=== PATIENT | female | born 1980 ===

== ENCOUNTER 2024-11-16 11:31 | Outpatient (CLI) | payer BC, SELFPAY ==
--- NOTE | ~2024-11-16 | US_ITS ---
EXAMINATION: US thyroid DATE: 11/16/2024 12:15 INDICATION: Nontoxic goiter TECHNIQUE: Multiple ultrasound images of the thyroid were obtained. COMPARISON: None. FINDINGS: The right thyroid lobe measures 1.7 x 4.5 x 1.3 cm. The left thyroid lobe measures 1.9 x 5.5 x 1.5 cm. The isthmus measures 0.2cm in anterior to posterior dimension. There is normal homogeneous echotexture throughout the thyroid gland. No discrete nodules identified. Normal vascular flow is present. IMPRESSION: Unremarkable sonographic evaluation of the thyroid gland, as detailed above. Reviewed, dictated and finalized at location A.
--- OUTSIDE RECORDS SUMMARY | 2024-11-16 12:20 | XMS_ITS | Data Portability ---
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 Plan of Treatment Reminders Order Date Submit Date Provider Last Modified By Organization Details Last Modified Time Details Appointments NEW PATIENT 15 2024 09:15A Mandi Goel MD Not available Not available Not available ANY 30 2024 08:00A PARIS MCNEILL Not available Not available Not available Lab CMP, serum or plasma 2024 025 [facility], [address], [place], [address], 10/25/2024 21:08:43 HIV 1 + 2, meaningfu l use set 2024 025 [facility], [address], [place], [address], 10/25/2024 21:08:48 RPR (rapid plasma reagin), serum 2024 025 [facility], [address], [place], [address], 10/25/2024 21:08:47 Hepatitis C IgG Ab, qual, serum 2024 025 [facility], [address], [place], [address], 10/25/2024 21:08:39 chlamydia trachomat is + neisseria gonorrhoe ae + trichomon as vaginalis rRNA panel, IVETTE+probe 2024 025 [facility], [address], [place], [address], 10/25/2024 21:08:41 cobalamin and folate panel, serum 2024 025 [facility], [address], [place], [address], 10/25/2024 21:08:44 TSH + free T4, serum 2024 025 [facility], [address], [place], [address], 10/25/2024 21:08:42 GEE (antinucl ear antibodie s) screen, serum 2024 025 [facility], [address], [place], [address], 10/25/2024 21:08:40 ESR (erythroc yte sedimenta tion rate), blood 2024 025 [facility], [address], [place], [address], 10/25/2024 21:08:45 C reactive protein, QN, serum or plasma 2024 025 [facility], [address], [place], [address], 10/25/2024 21:08:46 urinalysi s complete, reflex culture 2022 023 [facility], [address], [place], [address], 12/15/2022 11:15:28 RPR (rapid plasma reagin), serum 2022 023 [facility], [address], [place], [address], 12/15/2022 11:15:28 HIV 1 + 2, meaningfu l use set 2022 023 [facility], [address], [place], [address], 12/15/2022 11:15:29 bacterial vaginosis score, IVETTE+probe , vaginal fluid (OBS) 2022 023 [facility], [address], [place], [address], 12/15/2022 11:15:26 urinalysi s, dipstick 2022 023 [email or web address] In-Office Order, Internal Use Only DO Not Attach Compendium DO Not Attach Compendium, Do Not Delete/merge, [id number] 08/11/2022 21:31:37 bacterial vaginosis score, IVETTE+probe , vaginal fluid (OBS) 2022 023 [facility], [address], [place], [address], 08/16/2022 10:08:29 pap, IG + reflex HPV 2020 021 [facility], [address], [place], [address], 07/02/2021 16:11:51 urinalysi s, dipstick 2020 021 [email or web address] In-Office Order, Internal Use Only DO Not Attach Compendium DO Not Attach Compendium, Do Not Delete/merge, [id number] 05/15/2021 16:20:36 TSH + free T4, serum 2020 021 [facility], [address], [place], [address], 05/20/2021 08:19:37 bacterial vaginosis + vaginitis panel, vaginal 2020 [facility], [address], [place], [address], 05/20/2021 08:19:36 vitamin D, 25-hydrox y, total, serum 2020 [facility], [address], [place], [address], 05/20/2021 08:19:40 CBC w/ auto diff 2020 [facility], [address], [place], [address], 05/20/2021 08:19:37 CMP, serum or plasma 2020 [facility], [address], [place], [address], 05/20/2021 08:19:38 vitamin B12 + folate, serum or blood 2020 [facility], [address], [place], [address], 05/20/2021 08:19:39 iron + total iron-bind ing capacity (TIBC), serum 2020 [facility], [address], [place], [address], 05/20/2021 08:19:39 Referral cardiolog ist referral 2024 [place] [address] Nay Goel MD, [address], [place], [address], 11/07/2024 08:08:19 Procedures None recorded. Surgeries None recorded. Imaging US, thyroid [address] (Imaging), [address] [facility] [address], [place], [address], 10/24/2024 10:13:46 MAMMO, screening , bilateral [address] (Imaging), [address] [facility] [address], [place], [address], 10/24/2024 10:13:47 XR, chest, 2 view 2024 025 [facility] ([facility]), [address] [place], [address], 10/24/2024 11:10:45 US, pelvis, transabdo joel + transvagi nal [email or web address] ([address]), [address] [facility], [place], [address], 12/08/2022 16:39:35 US, breast, bilateral 2020 021 Not available 06/25/2021 11:13:30 MAMMO, diagnosti c, digital, bilateral 2020 021 [email or web address] Not available 07/07/2021 16:08:57 US, thyroid 2020 021 [facility] (Rad), [address] [facility], [place], [address], 05/28/2021 16:10:28 Medication Orders venlafaxi ne ER 37.5 mg capsule,e xtended release 24 hr 2024 025 [employer] [facility], [address] [place] [address], [id number], 11/10/2024 11:44:45 nitrofura ntoin monohydra te/macroc rystals 100 mg capsule 2022 023 [facility], [address] [place], [id number], 10/24/2024 09:30:34 nitrofura ntoin monohydra te/macroc rystals 100 mg capsule 2022 023 [facility], [address] [place], [place], [id number], 10/24/2024 09:30:34 fluconazo le 200 mg tablet 2022 023 [email or web address], [facility] [place], [place], [id number], 12/08/2022 16:15:02 omeprazol e 20 mg capsule,d elayed release 2020 021 [id number], [address] [place] [address], [id number], 08/11/2022 14:35:17 Patient TargetsNo targets recorded. 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 Referring Physician: Kamila Ho, Senior Clinical Research Associate, Encounter Date: 10/24/2024 Results Created Date Observation Date Name Description Value Unit Range Abnormal Flag Note LastModifiedBy Organization Detail LastModifiedTime 05/16/2005/19/2021 NUSWA B VAGIN ITIS PLUS (VG+) atopobium vaginae Modera te - 1 score Not Available [facility] ([facility]) [address] [facility], [place], [address], 05/20/2021 08:19:36 05/16/20 21 05/19/2021 NUSWA B VAGIN ITIS PLUS (VG+) bvab 2 High - 2 score abnormal Not Available [facility] ([facility]) [address] [facility], [place], [address], 05/20/2021 08:19:36 05/16/2005/19/2021 NUA B VAGIN ITIS PLUS (VG+) megasphaera 1 High - 2 score abnormal Calcu late total score by didier osborne the 3 indiv idual bacte rial vagin osis (BV) marke r score s toget her. Total score is inter prete d as follo ws: Total score 0-1: Indic ates the absen ce of BV. Total score 2: Indet ermin ate for BV. Addit ional clini bhanu data shoul d be evalu ated to estab heath a diagn osis. Total score 3-6: Indic ates the prese nce of BV. This test was devel oped and its perfo rmanc e tiffanie cteri stics deter mined by [facility]. It has not been clear ed or appro delonte by the Food and Drug Admin istra tion. Not Available [facility] ([facility]) [address] [facility], [place], [address], 05/20/2021 08:19:36 05/16/2005/19/2021 NUSWA B VAGIN ITIS PLUS (VG+) jagjit albicans, IVETTE Negati ve negati ve Not Available [facility] ([facility]) [address] [facility], [place], [address], 05/20/2021 08:19:36 05/16/2005/19/2021 NUSWA B VAGIN ITIS PLUS (VG+) jagjit glabrata, IVETTE Negati ve negati ve Not Available [facility] ([facility]) [address] [facility], [place], [address], 05/20/2021 08:19:36 05/16/2005/20/2021 NUSWA B VAGIN ITIS PLUS (VG+) trich vag by IVETTE Negati ve negati ve Not Available [facility] ([facility]) [address] [facility], [place], [address], 05/20/2021 08:19:36 05/16/2005/20/2021 NUSWA B VAGIN ITIS PLUS (VG+) chlamydia trachomatis, IVETTE Negati ve negati ve Not Available [facility] ([facility]) [address] [facility], [place], [address], 05/20/2021 08:19:36 05/16/2005/20/2021 NUSWA B VAGIN ITIS PLUS (VG+) neisseria gonorrhoeae, VIETTE Negati ve negati ve Not Available [facility] ([facility]) [address] [facility], [place], [address], 05/20/2021 08:19:36 05/16/2005/17/2021 TSH+F REE T4 TSH 0.888 uIU/m L 0.450- 4.500 Not Available [facility] ([facility]) [address] [facility], [place], [address], 05/20/2021 08:19:37 05/16/2005/17/2021 TSH+F REE T4 T4,free(dire ct) 1.08 NG/dL 0.82-1 .77 Not Available [facility] ([facility]) [address] [facility], [place], [address], 05/20/2021 08:19:37 05/16/2005/17/2021 CBC WITH DIFFE RENTI AL/PL ATELE T WBC 6.5 x10e3 /uL 3.4-10 .8 Not Available [facility] ([facility]) [address] [facility], [place], [address], 05/20/2021 08:19:37 05/16/2005/17/2021 CBC WITH DIFFE RENTI AL/PL ATELE T RBC 4.06 x10e6 /uL 3.77-5 .28 Not Available [facility] ([facility]) [address] [facility], [place], [address], 05/20/2021 08:19:37 05/16/2005/17/2021 CBC WITH DIFFE RENTI AL/PL ATELE T hemoglobin 13.1 g/dL 11.1-1 5.9 Not Available [facility] ([facility]) [address] [facility], [place], [address], 05/20/2021 08:19:37 05/16/2005/17/2021 CBC WITH DIFFE RENTI AL/PL ATELE T hematocrit 40.3 % 34.0-4 6.6 Not Available [facility] ([facility]) [address] [facility], [place], [address], 05/20/2021 08:19:37 05/16/2005/17/2021 CBC WITH DIFFE RENTI AL/PL ATELE T MCV 99 fL 79-97 above high normal Not Available [facility] ([facility]) [address] [place], [address], 05/20/2021 08:19:37 05/16/2005/17/2021 CBC WITH DIFFE RENTI AL/PL ATELE T MCH 32.3 pg 26.6-3 3.0 Not Available [facility] ([facility]) [address] [facility], [place], [address], 05/20/2021 08:19:37 05/16/20 21 05/17/2021 CBC WITH DIFFE RENTI AL/PL ATELE T MCHC 32.5 g/dL 31.5-3 5.7 Not Available [facility] ([facility]) [address] [facility], [place], [address], 05/20/2021 08:19:37 05/16/2005/17/2021 CBC WITH DIFFE RENTI AL/PL ATELE T RDW 12.1 % 11.7-1 5.4 Not Available [facility] ([facility]) [address] [facility], [place], [address], 05/20/2021 08:19:37 05/16/2005/17/2021 CBC WITH DIFFE RENTI AL/PL ATELE T platelets 220 x10e3 /uL 150-45 0 Not Available [facility] ([facility]) [address] [facility], [place], [address], 05/20/2021 08:19:37 05/16/2005/17/2021 CBC WITH DIFFE RENTI AL/PL ATELE T neutrophils 65 % not estab. Not Available [facility] ([facility]) [address] [facility], [place], [address], 05/20/2021 08:19:37 05/16/2005/17/2021 CBC WITH DIFFE RENTI AL/PL ATELE T lymphs 26 % not estab. Not Available [facility] ([facility]) [address] [facility], [place], [address], 05/20/2021 08:19:37 05/16/2005/17/2021 CBC WITH DIFFE RENTI AL/PL ATELE T monocytes 7 % not estab. Not Available [facility] ([facility]) [address] [facility], [place], [address], 05/20/2021 08:19:37 05/16/20 21 05/17/2021 CBC WITH DIFFE RENTI AL/PL ATELE T eos 1 % not estab. Not Available [facility] ([facility]) [address] [place], [address], 05/20/2021 08:19:37 05/16/2005/17/2021 CBC WITH DIFFE RENTI AL/PL ATELE T basos 1 % not estab. Not Available [facility] ([facility]) [address] [facility], [place], [address], 05/20/2021 08:19:37 05/16/2005/17/2021 CBC WITH DIFFE RENTI AL/PL ATELE T immature cells PATIENT FINANCIAL COORDINATOR Not Available [facility] ([facility]) [address] [facility], [place], [address], 05/20/2021 08:19:37 05/16/2005/17/2021 CBC WITH DIFFE RENTI AL/PL ATELE T neutrophils (absolute) 4.2 x10e3 /uL 1.4-7. 0 Not Available [facility] ([facility]) [address] [facility], [place], [address], 05/20/2021 08:19:37 05/16/2005/17/2021 CBC WITH DIFFE RENTI AL/PL ATELE T lymphs (absolute) 1.7 x10e3 /uL 0.7-3. 1 Not Available [facility] ([facility]) [address] [facility], [place], [address], 05/20/2021 08:19:37 05/16/2005/17/2021 CBC WITH DIFFE RENTI AL/PL ATELE T monocytes(ab solute) 0.5 x10e3 /uL 0.1-0. 9 Not Available [facility] ([facility]) [address] [place], [address], 05/20/2021 08:19:37 05/16/2005/17/2021 CBC WITH DIFFE RENTI AL/PL ATELE T eos (absolute) 0.1 x10e3 /uL 0.0-0. 4 Not Available [facility] ([facility]) [address] [facility], [place], [address], 05/20/2021 08:19:37 05/16/2005/17/2021 CBC WITH DIFFE RENTI AL/PL ATELE T baso (absolute) 0.1 x10e3 /uL 0.0-0. 2 Not Available [facility] ([facility]) [address] [facility], [place], [address], 05/20/2021 08:19:37 05/16/20 21 05/17/2021 CBC WITH DIFFE RENTI AL/PL ATELE T immature granulocytes 0 % not estab. Not Available [facility] ([facility]) [address] [facility], [place], [address], 05/20/2021 08:19:37 05/16/2005/17/2021 CBC WITH DIFFE RENTI AL/PL ATELE T immature grans (abs) 0.0 x10e3 /uL 0.0-0. 1 Not Available [facility] ([facility]) [address] [facility], [place], [address], 05/20/2021 08:19:37 05/16/2005/17/2021 CBC WITH DIFFE RENTI AL/PL ATELE T NRBC PATIENT FINANCIAL COORDINATOR Not Available [facility] ([facility]) [address] [facility], [place], [address], 05/20/2021 08:19:37 05/16/2005/17/2021 CBC WITH DIFFE RENTI AL/PL ATELE T hematology comments: PATIENT FINANCIAL COORDINATOR Not Available [facility] ([facility]) [address] [facility], [place], [address], 05/20/2021 08:19:37 05/16/2005/17/2021 COMP. METAB OLIC PANEL (14) glucose 77 mg/dL 65-99 Not Available [facility] ([facility]) [address] [facility], [place], [address], 05/20/2021 08:19:38 05/16/20 21 05/17/2021 COMP. METAB OLIC PANEL (14) BUN 10 mg/dL 6-24 Not Available [facility] ([facility]) [address] [facility], [place], [address], 05/20/2021 08:19:38 05/16/20 21 05/17/2021 COMP. METAB OLIC PANEL (14) creatinine 0.63 mg/dL 0.57-1 .00 Not Available [facility] ([facility]) [address] [facility], [place], [address], 05/20/2021 08:19:38 05/16/2005/17/2021 COMP. METAB OLIC PANEL (14) eGFR if nonafricn AM 113 mL/mi n/1.7 3 >59 Not Available [facility] ([facility]) [address] [facility], [place], [address], 05/20/2021 08:19:38 05/16/20 21 05/17/2021 COMP. METAB OLIC PANEL (14) eGFR if africn AM 130 mL/mi n/1.7 3 >59 In accor dance with recom menda tions from the NKF-A SN Task force , [facility] is in the proce ss of updat ing its eGFR calcu latio n to the 2020 CKD-E PI creat inine equat ion that estim ates kidne y funct ion witho ut a race varia ble. Not Available [facility] ([facility]) [address] [facility], [place], [address], 05/20/2021 08:19:38 05/16/2005/17/2021 COMP. METAB OLIC PANEL (14) BUN/creatini ne ratio 16 9-23 Not Available [facility] ([facility]) [address] [facility], [place], [address], 05/20/2021 08:19:38 05/16/20 21 05/17/2021 COMP. METAB OLIC PANEL (14) sodium 141 mmol/ L 134-14 4 Not Available [facility] ([facility]) [address] [place], [address], 05/20/2021 08:19:38 05/16/20 21 05/17/2021 COMP. METAB OLIC PANEL (14) potassium 4.3 mmol/ L 3.5-5. 2 Not Available [facility] ([facility]) [address] [place], [address], 05/20/2021 08:19:38 05/16/2005/17/2021 COMP. METAB OLIC PANEL (14) chloride 107 mmol/ L 96-106 above high normal Not Available [facility] ([facility]) [address] [place], [address], 05/20/2021 08:19:38 05/16/20 21 05/17/2021 COMP. METAB OLIC PANEL (14) carbon dioxide, total 20 mmol/ L 20-29 Not Available [facility] ([facility]) [address] [place], [address], 05/20/2021 08:19:38 05/16/20 21 05/17/2021 COMP. METAB OLIC PANEL (14) calcium 8.6 mg/dL 8.7-10 .2 below low normal Not Available [facility] ([facility]) [address] [place], [address], 05/20/2021 08:19:38 05/16/20 21 05/17/2021 COMP. METAB OLIC PANEL (14) protein, total 7.3 g/dL 6.0-8. 5 Not Available [facility] ([facility]) [address] [place], [address], 05/20/2021 08:19:38 05/16/20 21 05/17/2021 COMP. METAB OLIC PANEL (14) albumin 4.4 g/dL 3.8-4. 8 Not Available [facility] ([facility]) [address] [facility] [place], [address], 05/20/2021 08:19:38 05/16/20 21 05/17/2021 COMP. METAB OLIC PANEL (14) globulin, total 2.9 g/dL 1.5-4. 5 Not Available [facility] ([facility]) [address] [facility] [place], [address], 05/20/2021 08:19:38 05/16/20 21 05/17/2021 COMP. METAB OLIC PANEL (14) A/G ratio 1.5 1.2-2. 2 Not Available [facility] ([facility]) [address] [facility], [place], [address], 05/20/2021 08:19:38 05/16/2005/17/2021 COMP. METAB OLIC PANEL (14) bilirubin, total 0.3 mg/dL 0.0-1. 2 Not Available [facility] ([facility]) [address] [facility] [place], [address], 05/20/2021 08:19:38 05/16/20 21 05/17/2021 COMP. METAB OLIC PANEL (14) alkaline phosphatase 68 IU/L 44-121 Ple ase note refer ence inter jessica august e Not Available [facility] ([facility]) [address] [facility] [place], [address], 05/20/2021 08:19:38 05/16/20 21 05/17/2021 COMP. METAB OLIC PANEL (14) AST (SGOT) 19 IU/L 0-40 Not Available [facility] ([facility]) [address] [facility], [place], [address], 05/20/2021 08:19:38 05/16/20 21 05/17/2021 COMP. METAB OLIC PANEL (14) ALT (SGPT) 15 IU/L 0-32 Not Available [facility] ([facility]) [address] [facility], [place], [address], 05/20/2021 08:19:38 05/16/2005/17/2021 IRON AND TIBC iron bind.cap.(TI BC) 311 ug/dL 250-45 0 Not Available [facility] ([facility]) [address] [facility], [place], [address], 05/20/2021 08:19:39 05/16/2005/17/2021 IRON AND TIBC UIBC 227 ug/dL 131-42 5 Not Available [facility] ([facility]) [address] [facility], [place], [address], 05/20/2021 08:19:39 05/16/2005/17/2021 IRON AND TIBC iron 84 ug/dL 27-159 Not Available [facility] ([facility]) [address] [facility], [place], [address], 05/20/2021 08:19:39 05/16/2005/17/2021 IRON AND TIBC iron saturation 27 % 15-55 Not Available [facility] ([facility]) [address] [facility], [place], [address], 05/20/2021 08:19:39 05/16/2005/17/2021 VITAM IN B12 AND FOLAT E vitamin B12 430 pg/mL 232-12 45 Not Available [facility] ([facility]) [address] [place], [address], 05/20/2021 08:19:39 05/16/2005/17/2021 VITAM IN B12 AND FOLAT E folate (folic acid), serum 11.9 NG/mL >3.0 A serum folat e paco ntrat ion of less than 3.1 ng/mL is consi dered to repre sent clini bhanu defic iency . Not Available [facility] ([facility]) [address] [facility], [place], [address], 05/20/2021 08:19:39 05/16/2005/17/2021 VITAM IN D, 25-HY DROXY vitamin D, 25-hydroxy 32.6 NG/mL 30.0-1 00.0 Vitam in D defic iency has been defin ed by the Insti tute of Medic ine and an Endoc rine Socie ty pract ice guide line as a level of serum 25-OH vitam in D less than 20 ng/mL (1,2) . The Endoc rine Socie ty went on to furth er defin e vitam in D insuf ficie ncy as a level betwe en 21 and 29 ng/mL (2). 1. IOM (Inst itute of Medic ine). 2010. Son ry refer ence intak es for calci um and D. Sol gonzalez [place]: The [facility] Press . 2. Diana perdue [place], [place] michael [place], Carole off-F errar i GALLEGOS, et al. Evalu ation , treat ment, and preve ntion of vitam in D defic iency : an Endoc rine Socie ty clini bhanu pract ice guide line. JCEM. 2010; 96(7) :1911 -30. Not Available [facility] ([facility]) [address] [facility], [place], [address], 05/20/2021 08:19:40 05/16/2005/16/2021 PLESHANI E NOTE please note Commen t The date and/o r time of colle ction was not indic ated on the requi sitio n as requi red by state and jac[place] law. The date of recei pt of the speci men was used as the colle ction date if not suppl ied. Not Available [facility] ([facility]) [address] [facility], [place], [address], 05/20/2021 08:19:41 05/21/2005/21/2021 urina lysis , dipst ick Leukocytes Negati ve Not Available In-Office Order Internal Use Only DO Not Attach Compendium DO Not Attach Compendium, Do Not Delete/merge, [id number] 05/15/2021 15:29:22 05/21/20 21 05/21/2021 urina lysis , dipst ick Nitrite negati ve Not Available In-Office Order Internal Use Only DO Not Attach Compendium DO Not Attach Compendium, Do Not Delete/merge, [id number] 05/15/2021 15:29:22 05/21/20 21 05/21/2021 urina lysis , dipst ick Urobilinogen .2 Not Available In-Of fice Order Internal Use Only DO Not Attach Compendium DO Not Attach Compendium, Do Not Delete/merge, [id number] 05/15/2021 15:29:22 05/21/20 21 05/21/2021 urina lysis , dipst ick Protein Negati ve Not Available In-Office Order Internal Use Only DO Not Attach Compendium DO Not Attach Compendium, Do Not Delete/merge, [id number] 05/15/2021 15:29:22 05/21/20 21 05/21/2021 urina lysis , dipst ick pH 6.5 Not Available In-Office Order Internal Use Only DO Not Attach Compendium DO Not Attach Compendium, Do Not Delete/merge, [id number] 05/15/2021 15:29:22 05/21/20 21 05/21/2021 urina lysis , dipst ick Blood Hemoly zed: Trace Not Available In-Office Order Internal Use Only DO Not Attach Compendium DO Not Attach Compendium, Do Not Delete/merge, [id number] 05/15/2021 15:29:22 05/21/20 21 05/21/2021 urina lysis , dipst ick Specific Henderson 1.030 Not Available In-Off ice Order Internal Use Only DO Not Attach Compendium DO Not Attach Compendium, Do Not Delete/merge, [id number] 05/15/2021 15:29:22 05/21/20 21 05/21/2021 urina lysis , dipst ick Ketone Negati ve Not Available In-Office Order Internal Use Only DO Not Attach Compendium DO Not Attach Compendium, Do Not Delete/merge, [id number] 05/15/2021 15:29:22 05/21/20 21 05/21/2021 urina lysis , dipst ick Bilirubin Negati ve Not Available In-Office Order Internal Use Only DO Not Attach Compendium DO Not Attach Compendium, Do Not Delete/merge, [id number] 05/15/2021 15:29:22 05/21/20 21 05/21/2021 urina lysis , dipst ick Glucose Negati ve Not Available In-Office Order Internal Use Only DO Not Attach Compendium DO Not Attach Compendium, Do Not Delete/merge, [id number] 05/15/2021 15:29:22 05/21/20 21 05/21/2021 urina lysis , dipst ick Appearance Clear Not Available In-Offi ce Order Internal Use Only DO Not Attach Compendium DO Not Attach Compendium, Do Not Delete/merge, [id number] 05/15/2021 15:29:22 05/21/20 21 05/21/2021 urina lysis , dipst ick Color Yellow Not Available In-Office Order Internal Use Only DO Not Attach Compendium DO Not Attach Compendium, Do Not Delete/merge, [id number] 05/15/2021 15:29:22 06/25/20 21 06/26/2021 IGP,A PTIMA HPV,A GE GDLN age gdln acog testing 30-65 Not Available [facility] ([facility]) [address] [facility] [address], [place], [address], 07/02/2021 16:11:50 06/25/20 21 06/28/2021 IGP,A PTIMA HPV,A GE GDLN HPV aptima Negati ve negati ve This nucle ic acid ampli ficat ion test detec ts fourt een high- risk HPV types (16,1 8,31, 33,35 ,39,4 5,51, 52,56 ,58,5 9,66, 68) witho ut diffe renti ation . Not Available [facility] ([facility]) [address] [facility] [address], [place], [address], 07/02/2021 16:11:50 06/25/20 21 07/02/2021 IGP,A PTIMA HPV,A GE GDLN diagnosis: Commhipolito t NEGAT ERMU FOR INTRA EPITH ELIAL LESIO N OR LELO HERNADEZ . THIS SPECI MEN WAS RESCR EENED PART OF OUR QUALI TY CONTR OL PROGR AM. Not Available [facility] ([facility]) [address] [place], [address], 07/02/2021 16:11:50 06/25/20 21 07/02/2021 IGP,A PTIMA HPV,A GE GDLN specimen adequacy: Commhipolito t Satis facto ry for evalu ation . Endoc ervic al and/o r squam ous metap lasti c cells (endo cervi bhanu compo nent) are prese nt. Not Available [facility] ([facility]) [address] [place], [address], 07/02/2021 16:11:50 06/25/20 21 07/02/2021 IGP,A PTIMA HPV,A GE GDLN clinician provided ICD10: Nora song Z12.4 Not Available [facility] ([facility]) [address] [place], [address], 07/02/2021 16:11:50 06/25/20 21 07/02/2021 IGP,A PTIMA HPV,A GE GDLN performed by: Nora Mccabe , Cytot echno logis t (ASCP ) Not Available [facility] ([facility]) [address] [place], [address], 07/02/2021 16:11:50 06/25/20 21 07/02/2021 IGP,A PTIMA HPV,A GE GDLN QC reviewed by: Nora Lynch , Cytot echno logis t (ASCP ) Not Available [facility] ([facility]) [address] [place], [address], 07/02/2021 16:11:50 06/25/20 21 07/02/2021 IGP,A PTIMA HPV,A GE GDLN . . Not Available [facility] ([facility]) [address] [place], [address], 07/02/2021 16:11:50 06/25/20 21 07/02/2021 IGP,A PTIMA HPV,A GE GDLN note: Commen t The Pap smear is a scree eduardo test lucero boone to aid in the detec tion of jayy ligna nt and malig nant condi tions of the uteri ne cervi x. It is not a diagn ostic proce dure and shoul d not be used as the sole means of detec ting cervi bhanu cance r. Both false -posi tive and false -nega tive repor ts do occur . Not Available [facility] ([facility]) [address] [place], [address], 07/02/2021 16:11:50 06/25/20 21 07/02/2021 IGP,A PTIMA HPV,A GE GDLN test methodology: Commen t This liqui d based ThinP rep(R ) pap test was scree mely with the use of an image guide oksana connelly. Not Available [facility] ([facility]) [address] [place], [address], 07/02/2021 16:11:50 08/11/19 23 08/14/2022 NUSWA B VG+, HSV hsv 1 IVETTE Negati ve negati ve Not Available [facility] ([facility]) [address] [place], [address], 08/16/2022 10:08:29 08/11/19 23 08/14/2022 NUSWA B VG+, HSV hsv 2 IVETTE Negati ve negati ve Not Available [facility] ([facility]) [address] [place], [address], 08/16/2022 10:08:29 08/11/19 23 08/15/2022 NUA B VG+, HSV trich vag by IVETTE Negati ve negati ve Not Available [facility] ([facility]) [address] [facility] [address], [place], [address], 08/16/2022 10:08:29 08/11/19 23 08/15/2022 NUSWA B VG+, HSV chlamydia trachomatis, IVETTE Negati ve negati ve Not Available [facility] ([facility]) [address] [facility] [address], [place], [address], 08/16/2022 10:08:29 08/11/19 23 08/15/2022 NUA B VG+, HSV neisseria gonorrhoeae, IVETTE Negati ve negati ve Not Available [facility] ([facility]) [address] [facility] [address], [place], [address], 08/16/2022 10:08:29 08/11/19 23 08/16/2022 NUA B VG+, HSV atopobium vaginae High - 2 score abnormal Not Available [facility] ([facility]) [address] [place], [address], 08/16/2022 10:08:29 08/11/19 23 08/16/2022 NUA B VG+, HSV bvab 2 Low - 0 score Not Available [facility] ([facility]) [address] [place], [address], 08/16/2022 10:08:29 08/11/19 23 08/16/2022 NUA B VG+, HSV megasphaera 1 High - 2 score abnormal Calcu late total score by didier osborne the 3 indiv idual bacte rial vagin osis (BV) marke r score s toget her. Total score is inter prete d as follo ws: Total score 0-1: Indic ates the absen ce of BV. Total score 2: Indet ermin ate for BV. Addit ional clini bhanu data shoul d be evalu ated to estab heath a diagn osis. Total score 3-6: Indic ates the prese nce of BV. This test was geo baldwin and its perfo jose e tiffanie mohrri stics deter mined by [facility]. It has not been clear ed or appro delonte by the Food and Drug Admin istra tion. Not Available [facility] ([facility]) [address] [facility] [address], [place], [address], 08/16/2022 10:08:29 08/11/19 23 08/16/2022 NUSWA B VG+, HSV jagjit albicans, IVETTE Negati ve negati ve Not Available [facility] ([facility]) [address] [facility] [address], [place], [address], 08/16/2022 10:08:29 08/11/19 23 08/16/2022 NUSWA B VG+, HSV jagjit glabrata, IVETTE Negati ve negati ve Not Available [facility] ([facility]) [address] [facility] [address], [place], [address], 08/16/2022 10:08:29 08/11/19 23 08/11/2022 urina lysis , dipst ick Leukocytes Negati ve Not Available In-Office Order Internal Use Only DO Not Attach Compendium DO Not Attach Compendium, Do Not Delete/merge, 08/11/2022 21:30:28 08/11/19 23 08/11/2022 urina lysis , dipst ick Nitrite negati ve Not Available In-Office Order Internal Use Only DO Not Attach Compendium DO Not Attach Compendium, Do Not Delete/merge, 08/11/2022 21:30:28 08/11/19 23 08/11/2022 urina lysis , dipst ick Urobilinogen 2 Not Available In-Of fice Order Internal Use Only DO Not Attach Compendium DO Not Attach Compendium, Do Not Delete/merge, 08/11/2022 21:30:28 08/11/19 23 08/11/2022 urina lysis , dipst ick Protein Negati ve Not Available In-Office Order Internal Use Only DO Not Attach Compendium DO Not Attach Compendium, Do Not Delete/merge, 08/11/2022 21:30:28 08/11/1908/11/2022 urina lysis , dipst ick pH 6.5 Not Available In-Office Order Internal Use Only DO Not Attach Compendium DO Not Attach Compendium, Do Not Delete/merge, 08/11/2022 21:30:28 08/11/1908/11/2022 urina lysis , dipst ick Blood Large Not Available In-Office Order Internal Use Only DO Not Attach Compendium DO Not Attach Compendium, Do Not Delete/merge, 08/11/2022 21:30:28 08/11/1908/11/2022 urina lysis , dipst ick Specific Henderson 1.015 Not Available In-Off ice Order Internal Use Only DO Not Attach Compendium DO Not Attach Compendium, Do Not Delete/merge, 08/11/2022 21:30:28 08/11/1908/11/2022 urina lysis , dipst ick Ketone Negati ve Not Available In-Office Order Internal Use Only DO Not Attach Compendium DO Not Attach Compendium, Do Not Delete/merge, 08/11/2022 21:30:28 08/11/1908/11/2022 urina lysis , dipst ick Bilirubin Negati ve Not Available In-Office Order Internal Use Only DO Not Attach Compendium DO Not Attach Compendium, Do Not Delete/merge, 08/11/2022 21:30:28 08/11/1908/11/2022 urina lysis , dipst ick Glucose Negati ve Not Available In-Office Order Internal Use Only DO Not Attach Compendium DO Not Attach Compendium, Do Not Delete/merge, 08/11/2022 21:30:28 08/11/1908/11/2022 urina lysis , dipst ick Appearance Clear Not Available In-Offi ce Order Internal Use Only DO Not Attach Compendium DO Not Attach Compendium, Do Not Delete/merge, 08/11/2022 21:30:28 08/11/19 23 08/11/2022 urina lysis , dipst ick Color Yellow Not Available In-Office Order Internal Use Only DO Not Attach Compendium DO Not Attach Compendium, Do Not Delete/merge, [id number] 08/11/2022 21:30:28 12/09/19 23 12/11/2022 URINE CULTU RE, ROUTI NE urine culture, routine Final report abnormal Not Available [facility] ([facility]) [address] [facility] [address], [place], [address], 12/11/2022 05:10:00 12/09/19 23 12/11/2022 URINE CULTU RE, ROUTI NE result 1 Escher ichia coli abnormal Great er than 100,0 00 colon y formi ng units per mL Cefaz mariann <=4 ug/mL Cefaz mariann with an BETTINA <=16 predi cts susce ptibi lity to the oral agent s cefac nghia, cefdi lu, cefpo doxim e, cefpr ozil, cefur oxime , cepha lexin , and lorac arbef when used for thera py of uncom plica [place] urina ry tract infec tions due to E. coli, Klebs iella pneum oniae , and Prote us mirab ilis. Not Available [facility] ([facility]) [address] [facility] [address], [place], [address], 12/11/2022 05:10:00 12/09/19 23 12/11/2022 URINE CULTU RE, ROUTI NE antimicrobia l susceptibili ty Commen t S = Susce ptibl e; I = Inter media te; R = Resis tant P = Posit erum; N = Negat erum MICS are expre ssed in micro grams per mL Antib iotic RSLT# 1 RSLT# 2 RSLT# 3 RSLT# 4 Amoxi cilli n/Cla vulan ic Acid S Ampic illin S Cefep alex S Ceftr iaxon e S Cefur oxime S Cipro floxa leeroy S Ertap enem S Genta micin S Imipe nem S Levof loxac in S Merop enem S Nitro furan toin S Piper acill in/Ta zobac jerry S Tetra cycli ne S Tobra mycin S Trime thopr im/Malcolm lfa S Not Available [facility] ([facility]) [address] [facility], [place], [address], 12/11/2022 05:10:00 12/09/19 23 12/12/2022 NUSWA B VG+, HSV atopobium vaginae Low - 0 score Not Available [facility] ([facility]) [address] [facility] [address], [place], [address], 12/15/2022 11:15:26 12/09/1912/12/2022 NUSWA B VG+, HSV bvab 2 Low - 0 score Not Available [facility] ([facility]) [address] [facility] [address], [place], [address], 12/15/2022 11:15:26 12/09/1912/12/2022 NUSWA B VG+, HSV megasphaera 1 Low - 0 score Calcu late total score by didier g the 3 indiv idual bacte rial vagin osis (BV) marke r score s toget her. Total score is inter prete d as follo ws: Total score 0-1: Indic ates the absen ce of BV. Total score 2: Indet ermin ate for BV. Addit ional clini bhanu data shoul d be evalu ated to estab heath a diagn osis. Total score 3-6: Indic ates the prese nce of BV. This test was devel oped and its perfo rmanc e tiffanie cteri stics deter mined by [facility]. It has not been clear ed or appro delonte by the Food and Drug Admin istra tion. Not Available [facility] ([facility]) [address] [facility] [address], [place], [address], 12/15/2022 11:15:26 12/09/1912/12/2022 NUSWA B VG+, HSV jagjit albicans, IVETTE Negati ve negati ve Not Available [facility] ([facility]) [address] [facility], [place], [address], 12/15/2022 11:15:26 12/09/19 23 12/12/2022 NUSWA B VG+, HSV jagjit glabrata, IVETTE Negati ve negati ve Not Available [facility] ([facility]) [address] [facility], [place], [address], 12/15/2022 11:15:26 12/09/19 23 12/14/2022 NUSWA B VG+, HSV trich vag by IVETTE Negati ve negati ve Not Available [facility] ([facility]) [address] [facility], [place], [address], 12/15/2022 11:15:26 12/09/19 23 12/14/2022 NUSWA B VG+, HSV chlamydia trachomatis, IVETTE Negati ve negati ve Not Available [facility] ([facility]) [address] [facility], [place], [address], 12/15/2022 11:15:26 12/09/19 23 12/14/2022 NUA B VG+, HSV neisseria gonorrhoeae, IVETTE Negati ve negati ve Not Available [facility] ([facility]) [address] [facility], [place], [address], 12/15/2022 11:15:26 12/09/19 23 12/15/2022 NUSWA B VG+, HSV hsv 1 IVETTE Negati ve negati ve Not Available [facility] ([facility]) [address] [facility], [place], [address], 12/15/2022 11:15:26 12/09/19 23 12/15/2022 NUSWA B VG+, HSV hsv 2 IVETTE Negati ve negati ve Not Available [facility] ([facility]) [address] [facility], [place], [address], 12/15/2022 11:15:26 12/09/19 23 12/14/2022 CT, NG, TRICH VAG BY IVETTE chlamydia by IVETTE - Test not perfo rmed. Tejinder ivan tests order ed. Not Available [facility] ([facility]) [address] [facility], [place], [address], 12/15/2022 11:15:27 12/09/19 23 12/14/2022 CT, NG, TRICH VAG BY IVETTE gonococcus by IVETTE - Test not perfo rmed Not Available [facility] ([facility]) [address] [facility], [place], [address], 12/15/2022 11:15:27 12/09/19 23 12/14/2022 CT, NG, TRICH VAG BY IVETTE trich vag by IVETTE - Test not perfo rmed Not Available [facility] ([facility]) [address] [facility], [place], [address], 12/15/2022 11:15:27 12/09/19 23 12/10/2022 UA/M W/RFL X CULTU RE, ROUTI NE specific gravity - Test not perfo rmed. No urine speci men recei delonte. Not Available [facility] ([facility]) [address] [facility], [place], [address], 12/15/2022 11:15:28 12/09/19 23 12/10/2022 UA/M W/RFL X CULTU RE ROUTI NE pH - Test not perfo rmed Not Available [facility] ([facility]) [address] [place], [address], 12/15/2022 11:15:28 12/09/19 23 12/10/2022 UA/M W/RFL X CULTU RE, ROUTI NE protein - Test not perfo rmed Not Available [facility] ([facility]) [address] [place], [address], 12/15/2022 11:15:28 05/09/12/10/2022 UA/M W/RFL X CULTU RE, ROUTI NE glucose - Test not perfo rmed Not Available [facility] ([facility]) [address] [place], [address], 12/15/2022 11:15:28 12/09/19 23 12/10/2022 UA/M W/RFL X CULTU RE, ROUTI NE ketones - Test not perfo rmed Not Available [facility] ([facility]) [address] [place], [address], 12/15/2022 11:15:28 12/09/19 23 12/10/2022 RPR, RFX QN RPR/C ONFIR M TP RPR Non Reacti ve nonrea ctive Not Available [facility] ([facility]) [address] [place], [address], 12/15/2022 11:15:28 12/09/19 23 12/10/2022 HIV AB/P2 4 AG WITH REFLE X HIV Ab/P24 Ag screen Non Reacti ve nonrea ctive HIV Negat erum HIV-1 /HIV- 2 antib odies and HIV-1 p24 antig en were NOT detec [place]. There is no labor atory evide nce of HIV infec tion. Not Available [facility] ([facility]) [address] [facility], [place], [address], 12/15/2022 11:15:29 12/09/19 23 12/14/[address] PROBL EM request problem TNP Test not perfo rmed. [facility] ivan tests order ed. TEST: [id number], Ng, Trich vag by IVETTE Not Available [facility] ([facility]) [address] [place], [address], 12/15/2022 11:15:25 12/09/19 23 12/10/2022 SPECI MEN STATU S REPOR T specimen status report TNP Test not perfo rmed. No urine speci men recei delonte. TEST: [id number] UA/M w/rfl x Cultu re, Routi ne Not Available [facility] ([facility]) [address], [place], [address], 12/15/2022 11:15:25 12/09/19 23 12/08/2022 urina lysis , dipst ick Leukocytes Large Not Available In-Offi ce Order Internal Use Only DO Not Attach Compendium DO Not Attach Compendium, Do Not Delete/merge, 12/08/2022 16:04:06 12/09/19 23 12/08/2022 urina lysis , dipst ick Nitrite negati ve Not Available In-Office Order Internal Use Only DO Not Attach Compendium DO Not Attach Compendium, Do Not Delete/merge, 12/08/2022 16:04:06 12/09/19 23 12/08/2022 urina lysis , dipst ick Urobilinogen .2 Not Available In-Of fice Order Internal Use Only DO Not Attach Compendium DO Not Attach Compendium, Do Not Delete/merge, 12/08/2022 16:04:06 12/09/19 23 12/08/2022 urina lysis , dipst ick Protein 100 Not Available In-Office Order Internal Use Only DO Not Attach Compendium DO Not Attach Compendium, Do Not Delete/merge, 12/08/2022 16:04:06 12/09/19 23 12/08/2022 urina lysis , dipst ick pH 6.0 Not Available In-Office Order Internal Use Only DO Not Attach Compendium DO Not Attach Compendium, Do Not Delete/merge, 12/08/2022 16:04:06 12/09/19 23 12/08/2022 urina lysis , dipst ick Blood Large Not Available In-Office Order Internal Use Only DO Not Attach Compendium DO Not Attach Compendium, Do Not Delete/merge, 12/08/2022 16:04:06 12/09/19 23 12/08/2022 urina lysis , dipst ick Specific Henderson 1.030 Not Available In-Off ice Order Internal Use Only DO Not Attach Compendium DO Not Attach Compendium, Do Not Delete/merge, [id number] 12/08/2022 16:04:06 12/09/19 23 12/08/2022 urina lysis , dipst ick Ketone Negati ve Not Available In-Office Order Internal Use Only DO Not Attach Compendium DO Not Attach Compendium, Do Not Delete/merge, [id number] 12/08/2022 16:04:06 12/09/19 23 12/08/2022 urina lysis , dipst ick Bilirubin Negati ve Not Available In-Office Order Internal Use Only DO Not Attach Compendium DO Not Attach Compendium, Do Not Delete/merge, [id number] 12/08/2022 16:04:06 12/09/19 23 12/08/2022 urina lysis , dipst ick Glucose Negati ve Not Available In-Office Order Internal Use Only DO Not Attach Compendium DO Not Attach Compendium, Do Not Delete/merge, [id number] 12/08/2022 16:04:06 12/09/19 23 12/08/2022 urina lysis , dipst ick Appearance Turbid Not Available In-Offi ce Order Internal Use Only DO Not Attach Compendium DO Not Attach Compendium, Do Not Delete/merge, 12/08/2022 16:04:06 12/09/19 23 12/08/2022 urina lysis , dipst ick Color Red Not Available In-Office Order Internal Use Only DO Not Attach Compendium DO Not Attach Compendium, Do Not Delete/merge, 12/08/2022 16:04:06 10/25/19 25 10/25/2024 INTER PRETA TION: interpretati on: Commen t Not infec [place] with HCV unles s early or acute infec tion is suspe cted (whic h may be delay ed in an immun ocomp romis ed indiv idual ), or other evide nce exist s to indic ate HCV infec tion. Not Available [facility] ([facility]) [address], [place], [address], 10/25/2024 21:08:38 10/25/19 10/25/2024 HCV ANTIB BALJIT RFX TO QUANT PCR HCV Ab NON REACTI VE nonrea ctive Not Available [facility] ([facility]) [address] [place], [address], 10/25/2024 21:08:39 10/25/1910/25/2024 ANTIN UCLEA R AB MULTI PLEX RFX 9 GEE direct NEGATI VE negati ve Not Available [facility] ([facility]) [address] [place], [address], 10/25/2024 21:08:40 10/25/1910/25/2024 CT, NG, TRICH VAG BY IVETTE chlamydia by IVETTE NEGATI VE negati ve Not Available [facility] ([facility]) [address] [place], [address], 10/25/2024 21:08:41 10/25/1910/25/2024 CT, NG, TRICH VAG BY IVETTE gonococcus by IVETTE NEGATI VE negati ve Not Available [facility] ([facility]) [address] [place], [address], 10/25/2024 21:08:41 10/25/1910/25/2024 CT, NG, TRICH VAG BY IVETTE trich vag by IVETTE NEGATI VE negati ve Not Available [facility] ([facility]) [address] [place], [address], 10/25/2024 21:08:41 10/25/1910/25/2024 TSH+F REE T4 TSH 1.130 uIU/m L 0.450- 4.500 Not Available [facility] ([facility]) [address] [place], [address], 10/25/2024 21:08:42 10/25/1910/25/2024 TSH+F REE T4 T4,free(dire ct) 1.07 NG/dL 0.82-1 .77 Not Available [facility] ([facility]) [address] [facility], [address], 10/25/2024 21:08:42 10/25/19 25 10/25/2024 COMP. METAB OLIC PANEL (14) glucose 91 mg/dL 70-99 Not Available [facility] ([facility]) [address] [place], [address], 10/25/2024 21:08:43 10/25/19 25 10/25/2024 COMP. METAB OLIC PANEL (14) BUN 9 mg/dL 6-24 Not Available [facility] ([facility]) [address] [place], [address], 10/25/2024 21:08:43 10/25/19 25 10/25/2024 COMP. METAB OLIC PANEL (14) creatinine 0.63 mg/dL 0.57-1 .00 Not Available [facility] ([facility]) [address] [place], [address], 10/25/2024 21:08:43 10/25/19 25 10/25/2024 COMP. METAB OLIC PANEL (14) eGFR 112 mL/mi n/1.7 3 >59 Not Available [facility] ([facility]) [address] [place], [address], 10/25/2024 21:08:43 10/25/1910/25/2024 COMP. METAB OLIC PANEL (14) BUN/creatini ne ratio 14 9-23 Not Available [facility] ([facility]) [address] [place], [address], 10/25/2024 21:08:43 10/25/19 25 10/25/2024 COMP. METAB OLIC PANEL (14) sodium 140 mmol/ L 134-14 4 Not Available [facility] ([facility]) [address] [place], [address], 10/25/2024 21:08:43 10/25/19 25 10/25/2024 COMP. METAB OLIC PANEL (14) potassium 3.9 mmol/ L 3.5-5. 2 Not Available [facility] ([facility]) [address] [place], [address], 10/25/2024 21:08:43 10/25/19 25 10/25/2024 COMP. METAB OLIC PANEL (14) chloride 106 mmol/ L 96-106 Not Available [facility] ([facility]) [address] [place], [address], 10/25/2024 21:08:43 10/25/1910/25/2024 COMP. METAB OLIC PANEL (14) carbon dioxide, total 19 mmol/ L 20-29 below low normal Not Available [facility] ([facility]) [address] [place], [address], 10/25/2024 21:08:43 10/25/19 25 10/25/2024 COMP. METAB OLIC PANEL (14) calcium 8.8 mg/dL 8.7-10 .2 Not Available [facility] ([facility]) [address] [place], [address], 10/25/2024 21:08:43 10/25/19 25 10/25/2024 COMP. METAB OLIC PANEL (14) protein, total 6.9 g/dL 6.0-8. 5 Not Available [facility] ([facility]) [address] [place], [address], 10/25/2024 21:08:43 10/25/1910/25/2024 COMP. METAB OLIC PANEL (14) albumin 4.3 g/dL 3.9-4. 9 Not Available [facility] ([facility]) [address] [place], [address], 10/25/2024 21:08:43 10/25/19 25 10/25/2024 COMP. METAB OLIC PANEL (14) globulin, total 2.6 g/dL 1.5-4. 5 Not Available [facility] ([facility]) [address] [facility] [place], [address], 10/25/2024 21:08:43 10/25/19 25 10/25/2024 COMP. METAB OLIC PANEL (14) bilirubin, total <0.2 mg/dL 0.0-1. 2 Not Available [facility] ([facility]) [address] [facility] [place], [address], 10/25/2024 21:08:43 10/25/19 25 10/25/2024 COMP. METAB OLIC PANEL (14) alkaline phosphatase 91 IU/L 44-121 Not Available [facility] ([facility]) [address] [facility] [place], [address], 10/25/2024 21:08:43 10/25/19 25 10/25/2024 COMP. METAB OLIC PANEL (14) AST (SGOT) 18 IU/L 0-40 Not Available [facility] ([facility]) [address] [facility] [place], [address], 10/25/2024 21:08:43 10/25/19 25 10/25/2024 COMP. METAB OLIC PANEL (14) ALT (SGPT) 13 IU/L 0-32 Not Available [facility] ([facility]) [address] [facility] [place], [address], 10/25/2024 21:08:43 10/25/19 25 10/25/2024 VITAM IN B12 AND FOLAT E vitamin B12 470 pg/mL 232-12 45 Not Available [facility] ([facility]) [address] [facility] [place], [address], 10/25/2024 21:08:44 10/25/19 25 10/25/2024 VITAM IN B12 AND FOLAT E folate (folic acid), serum 9.3 NG/mL >3.0 A serum folat e paco ntrat ion of less than 3.1 ng/mL is consi dered to repre sent clini bhanu defic iency . Not Available [facility] ([facility]) [address] [facility] [address], [place], [address], 10/25/2024 21:08:44 10/25/1910/25/2024 SEDIM ENTAT ION RATE- WESTE RGREN sedimentatio n rate-westerg hayley 17 mm/HR 0-32 Not Available [facility] ([facility]) [address] [facility] [address], [place], [address], 10/25/2024 21:08:45 10/25/1910/25/2024 C-CHRISTIANO CTIVE PROTE IN, QUANT C-reactive protein, quant 3 mg/L 0-10 Not Available [facility] ([facility]) [address] [place], [address], 10/25/2024 21:08:46 10/25/1910/25/2024 RPR, RFX QN RPR/C ONFIR M TP RPR NON REACTI VE nonrea ctive Not Available [facility] ([facility]) [address] [place], [address], 10/25/2024 21:08:47 10/25/1910/25/2024 HIV AB/P2 4 AG WITH REFLE X HIV Ab/P24 Ag screen NON REACTI VE nonrea ctive HIV-1 /HIV- 2 antib odies and HIV-1 p24 antig en were NOT detec america. There is no labor atory evide nce of HIV infec tion. HIV Negat erum Not Available [facility] ([facility]) [address] [facility] [address], [place], [address], 10/25/2024 21:08:48 05/28/20 21 05/28/2021 US, thyro id EXAMIN ATION: Thyroi d ultras ound ACCESS ION: EXAM DATE/T ALEX: 2020 2:01 PM REASON FOR EXAM: [id number] 002: Simple goiter COMPAR ZEB: None TECHNI QUE: Sonogr aphic graysc mikhail images of the thyroi d in multip le projec tions. Dopple r used to assess vascul ature. FINDIN GS: Right lobe: 1.7cm X 4.5cm X 1.4cm in dimens ion. Left lobe: 1.6cm X 4.3cm X 1.3cm in dimens ion. Isthmu s: 3 mm in thickn ess (AP). Echoge nicity within normal limits with no eviden ce of a nodule . ===== IMPRES IVETH:= ==== Normal thyroi d sonogr am. READ BY: SVETLANA CARLOS, JASMINA Date: 2020 15:08 [facility] ([facility]) [address] [place], [address], 05/30/2021 11:12:51 08/21/19 22 08/21/2021 US breas t limit ed - right Examin ation: Bilate ral diagno stic mammog khoi with tomosy nthesi s and right breast ultras ound Access ion: , [id number] Exam Date/T alex: 022 12:41 PM Reason For Exam: [id number] 07: Pain of breast Compar zeb: None Techni que: Digita l bilate ral diagno stic mammog cindi was perfor med includ ing tomosy nthesi s. Additi onal right breast ultras ound was perfor med. This study was read with the assist ance of a Gloss48 er-aid ed detect ion system . Tissue densit y: The breast tissue contai ns scatte red fibrog landul ar densit ies. Findin gs: Mammog khoi findin gs: The breast parenc hymal patter n is grossl y symmet sneha. A few puncta te benign -appea ring calcif icatio ns are noted. There are no suspic ious calcif icatio ns, masses , chandrakant ectura l distor tion or skin thicke eduardo on either side. Ultras ound findin gs: Target ed ultras ound was perfor med in the sympto matic area in the right breast . A large area was scanne d in the right latera l aspect includ ing upper and lower inner quadra nt. Ultras ound reveal s only benign -appea ring fibrog landul ar and fatty tissue s. Small fluid within the ducts is within physio logic limits . No discre te mass lesion or other abnorm ality is demons trated . ===== IMPRES IVETH:= ==== No mammog raphic or sonogr aphic eviden ce of malign juan david. Clinic al follow -up is recomm ended for the patien t's sympto ms. The decisi on for any furthe r workup or follow -up may be made on a clinic al basis. Assess ment: ACR BI-RAD S Catego ry 2 - Benign . Recomm endati on: 1: Routin e screen ing mammog khoi bilate ral in 1 year READ BY: SAMANTHA CRABTREE MD Date: 2021 14:20 [facility] ([facility]) [address] [place], [address], 08/22/2021 14:16:58 08/21/19 22 08/21/2021 aabd diagn ostic digit al breas t tomos ynthe sis - bilat eral Examin ation: Bilate ral diagno stic mammog khoi with tomosy nthesi s and right breast ultras ound Access ion: , [id number] Exam Date/T alex: 022 12:41 PM Reason For Exam: [id number] 07: Pain of breast Compar zeb: None Techni que: Digita l bilate ral diagno stic mammog cindi was perfor med includ ing tomosy nthesi s. Additi onal right breast ultras ound was perfor med. This study was read with the assist ance of a Gloss48 er-aid ed detect ion system . Tissue densit y: The breast tissue contai ns scatte red fibrog landul ar densit ies. Findin gs: Mammog khoi findin gs: The breast parenc hymal patter n is grossl y symmet sneha. A few puncta te benign -appea ring calcif icatio ns are noted. There are no suspic ious calcif icatio ns, masses , chandrakant ectura l distor tion or skin thicke eduardo on either side. Ultras ound findin gs: Target ed ultras ound was perfor med in the sympto matic area in the right breast . A large area was scanne d in the right latera l aspect includ ing upper and lower inner quadra nt. Ultras ound reveal s only benign -appea ring fibrog landul ar and fatty tissue s. Small fluid within the ducts is within physio logic limits . No discre te mass lesion or other abnorm ality is demons trated . ===== IMPRES IVETH:= ==== No mammog raphic or sonogr aphic eviden ce of malign juan david. Clinic al follow -up is recomm ended for the patien t's sympto ms. The decisi on for any furthe r workup or follow -up may be made on a clinic al basis. Assess ment: ACR BI-RAD S Catego ry 2 - Benign . Recomm endati on: 1: Routin e screen ing mammog khoi bilate ral in 1 year READ BY: SAMANTHA CRABTREE MD Date: 2021 14:20 [facility] ([facility]) [address], [place], [address], 08/22/2021 14:16:59 Result Notes None recorded. Problems No Known Problems Procedures Surgical History Date Name Laterality Status Provider Name and Address Organization Details Recorded Time 4 Tubal Ligation completed Monika Do MA [facility] 03/22/2018 10:36:58 8 Appendectomy completed Monika Do MA [facility] 03/22/2018 10:36:29 Imaging Results Imaging Date Name Status LastModified by Organization Details LastModified Time 05/28/2021 US, thyroid completed [facility] ([facility]) [address], [place], [address], 05/30/2021 11:12:51 08/21/2021 US breast limited - right completed [facility] ([facility]) [address], [place], [address], 08/22/2021 14:16:58 08/21/2021 abad diagnostic digital breast tomosynthesis - bilateral completed [facility] ([facility]) [address] [place], [address], 08/22/2021 14:16:59 Procedure Notes None recorded. Medical Equipment None Reported. Allergies No known drug allergies Medications Name Sig Start Date Stop Date Status Note LastModified by Organization Details LastModified Time multivitami n tablet Take 1 tablet every day by oral route. 05/15 completed Not Available Not Available Not Available venlafaxine ER 37.5 mg capsule,ext ended release 24 hr TAKE ONE CAPSULE BY MOUTH ONCE DAILY AT BEDTIME FOR ANXIETY active Not Available Not Available No t Available evening primrose oil 500 mg capsule Take 1 capsule every day by oral route at bedtime. 05/15 completed Not Available Not Available Not Available fluconazole 200 mg tablet TAKE ONE TABLET BY MOUTH HOY AND ONE TABLET IN THREE DAYS] 12/08 completed Not Available Not Available Not Available metronidazo le 0.75 % (37.5 mg/5 gram) vaginal gel Insert 1 applicato rful every day by vaginal route for 5 days. 08/11 completed Not Available Not Available Not Available penicillin V potassium 500 mg tablet Take 1 tablet every 8 hours by oral route for 10 days. 05/15 completed Not Available Not Available Not Available metronidazo le 500 mg tablet TAKE ONE TABLET BY MOUTH EVERY TWELVE HOURS WITH MEALS FOR 10 DAYS 12/08 completed Not Available Not Available Not Available phenazopyri dine 100 mg tablet 05/15 completed Not Available Not Available Not Available omeprazole 20 mg capsule,del ayed release Take 1 capsule every day by oral route for 30 days. 08/11 completed Not Available Not Available Not Available nitrofurant oin monohydrate /macrocryst als 100 mg capsule TAKE ONE CAPSULE BY MOUTH EVERY 12 HOURS WITH MEALS FOR 5 DAYS 10/24 completed Not Available Not Available Not Available Calcium with Vitamin D 600 mg-10 mcg (400 unit) tablet Take 1 tablet twice a day by oral route. 05/15 completed Not Available Not Available Not Available vitamin E (dl, acetate) 180 mg (400 unit) capsule Take 1 capsule twice a day by oral route. 05/15 completed Not Available Not Available Not Available ID NOW COVID-19 Test Kit TEST DIRECTED 05/15 completed Not Available Not Available Not Available Vitals Date Recorded Body height Body mass index (BMI) Body weight Heart rate Oxygen saturation Oxygen saturation in Arterial blood by Pulse oximetry Systolic blood pressure Diastolic blood pressure Provider Name and Address Organization Details Last Updated DateTime 1 165.1 cm 27.5 kg/m2 78574.7 4 g 78 /min 100 % 100 % 106 mm[Hg] 78 mm[Hg] Shena Nguyen MA [facility] 1 14:57:50 Date Recorded Body height Body mass index (BMI) Body weight Heart rate Oxygen saturation Oxygen saturation in Arterial blood by Pulse oximetry Systolic blood pressure Diastolic blood pressure Provider Name and Address Organization Details Last Updated DateTime 1 165.1 cm 27 kg/m2 33389.3 6 g 76 /min 99 % 99 % 102 mm[Hg] 68 mm[Hg] Shena Nguyen MA [facility] 1 10:41:06 Date Recorded Body height Body mass index (BMI) Body weight Oxygen saturation Oxygen saturation in Arterial blood by Pulse oximetry Heart rate Body temperature Respiratory rate Systolic blood pressure Diastolic blood pressure Provider Name and Address Organization Details Last Updated DateTime 3 165.1 cm 27 kg/m2 23115.3 6 g 98 % 98 % 87 /min 97.9 [degF] 18 /min 112 mm[Hg] 72 mm[Hg] Cheryl Neumann MA [facility] 3 14:34:55 Date Recorded Body height Body mass index (BMI) Body weight Oxygen saturation Oxygen saturation in Arterial blood by Pulse oximetry Heart rate Body temperature Systolic blood pressure Diastolic blood pressure Provider Name and Address Organization Details Last Updated DateTime 3 165.1 cm 27.3 kg/m2 92805.1 5 g 98 % 98 % 88 /min 98.6 [degF] 110 mm[Hg] 70 mm[Hg] Cheryl Neumann MA [facility] 3 15:56:53 Date Recorded Respiratory rate Provider Name a nd Address Organization Details Last Updated DateTime 12/08/2022 18 /min PARIS RAMIRES Attn: Accounting,[address] [place], [address], [facility] 12/09/2022 11:17:36 Date Recorded Body height Body mass index (BMI) Body weight Heart rate Oxygen saturation Oxygen saturation in Arterial blood by Pulse oximetry Systolic blood pressure Diastolic blood pressure Provider Name and Address Organization Details Last Updated DateTime 5 165.1 cm 27.8 kg/m2 54771.9 3 g 96 /min 99 % 99 % 107 mm[Hg] 75 mm[Hg] Shena Nguyen [facility] 5 09:33:24 Social History Question Answer Notes LastModified by Organizat ion Details LastModified Time Tobacco Smoking Status Former Smoker 1-2 cigarettes since off and on total of 2-3 years recently stopped 3 weeks PARIS HUGGINS Attn: Accounting,[address] [facility], [place], [address] 10/24/2024 09:52:04 Do You Have An Advance Directive? No Information not available 03/22/2018 What Is Your Level Of Alcohol Consumption? None Information not available 10/24/2024 Is Blood Transfusion Acceptable In An Emergency? Yes Information not available 03/22/2018 What Is Your Level Of Caffeine Consumption? Moderate Coffee Information not available 03/22/2018 How Much Tobacco Do You Chew? None Information not available 03/22/2018 In The 14 Days Before Symptom Onset, Have You Had Close Contact With A Laboratory-confi rmed COVID-19 While That Case Was Ill? No Information not available 05/15/2021 In The 14 Days Before Symptom Onset, Have You Had Close Contact With A Person Who Is Under Investigation For COVID-19 While That Person Was Ill? No Information not available 05/15/2021 Have You Been To An Area Known To Be High Risk For COVID-19? No Information not available 05/15/2021 Are You Currently Employed? No Information not available 03/22/2018 What Type Of Diet Are You Following? REGULAR Information not available 03/22/2018 Which Illicit Or Recreational Drugs Have You Used? None Information not available 03/22/2018 Education Less Than 8th Grade Information not available 03/22/2018 What Is Your Occupation? Unemployed Information not available 03/22/2018 Live Alone Or With Others? With Others Information not available 03/22/2018 What Was The Date Of Your Most Recent Tobacco Screening? 10/24/2024 Information not available 10/24/2024 How Many Children Do You Have? 4 Information not available 03/22/2018 Performs Monthly Self-breast Exam? No Pt Given Info On Self Breast Exams, Cb-rma Information not available 03/22/2018 Do You Use Protection During Sex? No Information not available 03/22/2018 What Is Your Relationship Status? Information not available 03/22/2018 Seat Belts Used Routinely Yes Information not available 03/22/2018 Are You Sexually Active? No Information not available 03/22/2018 General Stress Level Medium Information not available 03/22/2018 Do You Use Any Illicit Or Recreational Drugs? No Information not available 05/15/2021 Do You Use Sunscreen Routinely? Yes Pt States Sunscreen Sometimes, Cb-rma Information not available 03/22/2018 Has Tobacco Cessation Counseling Been Provided? Yes Information not available 10/24/2024 On What Date Was Tobacco Cessation Counseling Provided? 10/24/2024 Information not available 10/24/2024 Sex: Female Functional Status Question Answer Note LastModified by Organizat ion Details LastModified Time What is your exercise level? Occasional Information not available 03/22/2018 Mental Status None recorded. Family History Relationship Description Onset Age of this Age Resolved Age Notes LastModified by Organization Details LastModified Time Maternal Aunt Diabetes mellitus Not available 2024 09:48:59 Sister Malignant tumor of breast 45 Not available 2024 09:49:22 Father Family history of cancer of colon 79 Not available 2024 09:49:50 Medical History Condition Response Coronary Artery Disease N Other N Atrial Fibrillation N High Blood Pressure N Thyroid Problems N Kidney or Bladder Problems N GI Problems N Depression N COPD N Blood Clots N Skin Problems N Anemia N Heart Attack ([place]) N Headaches/Migraines Y Anxiety Disorder N Diabetes N Muscle, Joint, or Bone Problems N Seizures/Epilepsy N Infertility N Acid Reflux (GERD) N Cancer N Stroke N Asthma N Allergies N High Cholesterol N Hepatitis N Liver Disease N Headaches N Pre-Eclampsia N Heart Failure N Osteoporosis N Gynecological History Statement/Question Response Abnormal Pap N Flow Light Date of LMP 09/28/2024 On BCP's at Conception? N STIs/STDs N HPV Vaccine N Duration of Flow (days) 4 Age at Menarche 12 Current Control Method Tubal Ligat ion Age at First Child 20 Frequency of Cycle (Q days) 28 Sexually Active? N Menses Monthly Y Date of Last Pap Smear Sexual Problems? Y LMP Approximate Obstetrics History GPAL:G 4 P 4 0 0 4 Type Value Multiple Births 0 Full Term 4 Induced 0 Spontaneous 0 Premature 0 Living 4 Ectopics 0 Total 4 Immunizations Vaccine Type Date Status Note Provider Nam e and Address Organization Details Recorded Time COVID-19, mRNA, LNP-S, PF, 100 mcg/0.5mL dose or 50 mcg/0.25mL dose 06/02/2021 completed Shena Nguyen MA [place], [place] - [facility] 06/25/2021 10:38:56 Past Encounters Encounter ID Performer Location Encounter Start Date Encounter Closed Date Diagnosis/Indication Diagnosis SNOMED-CT Code Diagnosis ICD10 Code Diagnosis Note [id number] Sohail Silva (PRODUCTION GRIP) [address] [place] [address] 03/22/2018 09:36:08 03/22/2018 11:03:11 Gynecologic examination 47645714 Z01.419 Exposure t o sexually transmissible disorder 680740930 Z20.2 Fibrocysti c disease of breast 47769579 N60.19 [id number] PARIS HUGGINS [facility] [address] [place] [address] 05/15/2021 14:26:26 05/19/2021 08:01:16 Goiter 9009165 E04.9 goiter noticed on exam. she will fill out touchette paperwork to help test coverage [facility] risk of sexually transmitted infection 238334870 Z20.2 patient has new partner and has noticed change in discharge. she would like testing. Dysuria 31483428 R30.9 off and on dysuria. will check UA. Fatigue 38189540 R53.83 patient has fatigue. will check labs. periods are heavy and has sob when going up stairs. gets tired quicker than before. Gastroesop hageal reflux disease 773719990 K21.9 Screening mammography 24 349889 Z12.31 gave patient IBCCP number [id number] PARIS HUGGINS [facility] [address] [place] [address] 06/25/2021 10:27:10 06/27/2021 09:46:46 Gynecologic examination 62907652 Z01.419 HF presents for pap and CBE Pain of breast 77938788 N64.4 Patient has right breast on right 6-9 o-clock on lateral outer breast pain x 5 years. She has also felt some right nipple pain. on exam on nipple discharge, masses, skin changes noted. Screening for malignant neoplasm of cervix 156111229 Z12.4 - pap obtained- normal atrophy, no lesion or masses Family his tory of breast cancer 839311104 Z80.3 Her sister was diagnosed with breast cancer at age 40 and had total mastectomy . No other ovarian or breast cancer in the family. [id number] PARIS RAMIRES [facility] [address] [place] [address] 08/11/2022 14:26:50 08/12/2022 09:49:00 Acute urinary tract infection 471431956 N39.0 dysuria, urinary frequency and abd pain x2 daysh/o recurrent UTIs every couple of months since she was 20 yrs olddenies perineal hygiene or urination after sexual intercours euses unscented body washPEx- mild suprapubic painurine dip shows small leuks and large bloodwill treat with macrobid for uncomplica america UTIdiscuss ed prevention and tx of UTIs Candidiasis of vagina 72 466580 B37.31 x3 wkswhite, clumpy, thick discharge like sour cream mary es vaginal itchingwil l treat for yeastsend nu swab [id number] PARIS RAMIRES [facility] [address] [place] [address] 12/08/2022 15:50:17 12/08/2022 16:39:35 Dysuria 41613606 R30.0 urine dip in chartshowe d large leuks and blood Acute urin danilo tract infection 535678526 N39.0 12/08/22:sx onset this morning, dysuria and hematuriap t started period this morninguri ne dip in chartshowe d large leuks and bloodstart macrobidse nt culture 08/11/22:dy suria, urinary frequency and abd pain x2 daysh/o recurrent UTIs every couple of months since she was 20 yrs olddenies perineal hygiene or urination after sexual intercours euses unscented body washPEx- mild suprapubic painurine dip shows small leuks and large bloodwill treat with macrobid for uncomplica america UTIdiscuss ed prevention and tx of UTIs Suprapubic pain 26026456 6 R10.30 lower abd cramping x2 monthsPEx- mild suprapubic tenderness reassured ptcould be related to pre-menopa usal symptoms or ovarian cystordere d US pelvs T+V Venereal d isease screening 425588709 Z11.3 requesting STD screen [id number] PARIS HUGGINS [facility] [address] [place] [address] 10/24/2024 09:21:04 10/24/2024 10:13:46 Screening mammography 04197204 Z12.31 Anxiety 22462656 F41.9 - advised counseling -Patient was educated on his prescribed medication s, rationale for medication s, dosing indication s, adverse reactions, black box warning, dosing indication s, SE (e.g., decreased libido, weight gain, gynecomast ia, and galactorrh ea) and the risks and benefits. -Call center with questions/ concerns. Go to ER or call 911 for crisis (e.g., suicidal behaviors, suicidal ideations, intent or plan emerge). - f/u one month - call with questions Multiple joint pain 3567 8005 M25.50 daily b/l R>L Knee and elbow pain Paresthesia 65952840 R20 .2 hand and feet get tingly almost daily all the hand more at night Overweight 922619864 E66 .3 bmi 27 Vaginal discharge 136396 006 N89.8 had new partner and would like sti testingals o states has seen grouped vesicles near her left groing and worries it is heperiessh e does get cold sores Goiter 0349168 E04.9 goiter noticed on exam. she will fill out touchette paperwork to help test coverage Chest pain 91608528 R07. 9 chest pain on occasion. difficult to get history. Has been going on for years. agrees to xr, ekg and cardiology evaluation . encouraged to stay smoke free. ER if has CP, sob, worst headache of life, weakness, pain that radiates to jaw. Health Concerns Section Related Observation LastModified by Organization Detai ls LastModified Time None Recorded Concern Status LastModified by Organization Details LastModified Time None Recorded Advance Directives Directive N: Payers Encounter Date Sequence Insurance Name Policy Number Policy Ballard Covered Member ID Ballard Member ID Guarantor Name 05/15/2021 1 *SELF PAY* Bi biana Yeboah 06/25/2021 1 *SELF PAY* Bi biana Yeboah 08/11/2022 SLIDING FEE SCHEDULE - DISCOUNT Corie Yeboah 12/08/2022 1 *SELF PAY* Bi biana Yeboah 10/24/2024 1 [place] [id number] Corie Yeboah Victorino [id number] Corie Yeboah Notes Date Note Type Note Provider Name and Address Organization Details Recorded Time 05/15/2021 text/html FatigueReported bypatient.Quality:cont inuous Severity:normal sleep patterns; mild Duration:constant Timing:worse Context:symptoms do not improve on weekends/vacations Modifying Factors:new stressors in lifeVaginal DischargeReported bypatient.Location:vag eliseo Quality:white Severity:mild Duration:symptoms lasting over 2 weeks Onset/Timing:daily Context:new sexual partner Modifying Factors:nothing gives relief Associated Symptoms:no vaginal itching; no vaginal burning; no swelling/redness; no fever/chills; no diarrhea; no pelvic pain Patient presents with multiple complaints periods are heavy on first two days and has sob when going up stairs. gets tired quicker than before. Patient has noticed change in her discharge for the last few months. Has had new partner. denies fever, chills, abnormal bleeding. two months with epigastric pain. has not tried anything otc. PARIS HUGGINS Attn: Accounting,[address] [place], [address], [facility] 05/16/2021 11:50:44 06/25/2021 text/html Annual GYNReport ed bypatient.Urinary symptoms:No hematuria; No incontinence Vagina:Normal vaginal discharge Breast:Breast pain Psychological symptoms:No depression Corie is a 40 YO HF presenting for pap and CBE with IBCCP program Patient has had 4 vaginal deliveries, no complications. Normal periods. lmp 06/13/21. Her sister was diagnosed with breast cancer at age 40 and had total mastectomy. No other ovarian or breast cancer in the family. Patient c/o right breast pain and sometimes right nipple pain. no nipple discharge. no masses. entire right side. has been happening 5 years ago. not a/w menstruation. never had imaging, doctors told her pain caused by drinking coffee (in [place]). PARSI HUGGINS Attn: Accounting,[address] [place], [address], [facility] 06/25/2021 13:08:24 08/11/2022 text/html Pt presents with dysuria, urinary frequency and vaginal discharge. C/o dysuria and lower abd pain x2 days. Denies hematuria or urinary urgency. C/o white, thick clumpy vaginal discharge x3 wks. Pt is sexually active with 1 partner. H/o recurrent UTIs every couple of months since she was 20 yrs old. She uses unscented body wash. Denies perineal hygiene or urination after sexual intercourse. PARIS RAMIRES Attn: Accounting,[address] [place], [address], [facility] 08/11/2022 21:36:14 12/08/2022 text/html Pt presents with dysuria, hematuria, and lower stomach cramping x1 day. Reports she started her period this morning. C/o pink/brown/black discharge x2 days that resolved. Pt is sexually active.C/o intermittent lower stomach cramping for the past 2 months, not related to menstrual cycle. Pain can last up to 4 hours. Relief with tylenol. States that last month her period was 1 month late with lots of blood clots and had more cramping during that month. PARIS RAMIRES Attn: Accounting, [facility], [place], [address], [place] 12/09/2022 11:20:56 10/24/2024 text/html Corie is a 44 YO F here for multiple issues Last seen in office in 11/2022 CP: she has occasional chest pain mid-sternal and states it comes and goes. She attributes this to her smoking 1-2 cigarette's for 2-3 years, She does occasionally. She complained of this in 2020 and did not f/u. Denies family history of [place]. pain/paresthesia: c/o of R>L knee and elbow pain for a while. She also c/o of tingling in b/l hand/fingers and feet most daily that is most noticeable at night. She attributes this to her work. sti: She has had new partner and noticed a white discharge that is heavier than usual. denies fever, changes in periods, change of smell or pelvic pain. She has also noticed small grouped vesicle on let left side groin on two occasions that cause pain and itching. She does not have rash today. anxiety: She c/o of anxiety everyday. mutliple family members tell her she is very anxious. she does sleep well but endorses over-thinking, negative thoughts/outcomes, moments of uncontrolled anxiety, increased appetite and stress eating. denies si/hi. She is open to medications.mammogram: due. Sister with breast cancer dx age approx 45. goiter: She c/o of noticing her neck is still large and feels it has worsened. US at [facility] shows normal thyroid. pap: 2020 NILM, hpv neg PARIS HUGGINS Attn: Accounting,[address] , [place], [address], [place] - [facility] 10/25/2024 12:11:19 OBGyn Episode Ob Episode Information Episode Created Date Number of Fetuses Patient Bloodtype Patient rh Status Prepregnancy Weight lbs Domestic Partner Domestic Partner Phone Father Name Spa Assistant Manager Status 03/22/20 18 1 CLOSED Fetus Data First Name Last Name Admitted to NICU Weight (g) Sex Living Outcome Pediatric Complications Fetus ID Race Codes Race Delivery Type 2721.55 2 M Full Term [id number] Vaginal Yamil Calculation Initial Yamil Date Initial Exam Date Initial Exam Provider Initial Ultrasound Date Last Menstrual Period Date Ultra Sound Weeks Gestation 0 Eighteen To Twenty Week Yamil Update Ultra Sound Date Fundal Height At Umbil Quickening Date Ultra Sound Latest Weeks Gestation Final Yamil Confirmed By Final Yamil Confirmed Date Final Yamil Date Ultra Sound Latest Days Gestation 0 0 Menstrual History Last Menstrual Date Menses Monthly On Bcp Conception Prior Menses Frequency Hcg Plus Date Menarche Onset Age Delivery Information Delivery Date Delivery Type Labor Anesthesia Weeks Gestation Incision Type Labor Labor Length Hrs Delivered By Post Complications Tubal Sterilization Discharge Date Comments 3 40 baby boy born [place], cb-rma Discharge Information Feeding Method Contraceptive Method Maternal HG B and HCT Levels Ob Episode Information Episode Created Date Number of Fetuses Patient Bloodtype Patient rh Status Prepregnancy Weight lbs Domestic Partner Domestic Partner Phone Father Name Spa Assistant Manager Status 03/22/20 18 1 CLOSED Fetus Data First Name Last Name Admitted to NICU Weight (g) Sex Living Outcome Pediatric Complications Fetus ID Race Codes Race Delivery Type 3628.73 6 F Full Term [id number] Vaginal Yamil Calculation Initial Yamil Date Initial Exam Date Initial Exam Provider Initial Ultrasound Date Last Menstrual Period Date Ultra Sound Weeks Gestation 0 Eighteen To Twenty Week Yamil Update Ultra Sound Date Fundal Height At Umbil Quickening Date Ultra Sound Latest Weeks Gestation Final Yamil Confirmed By Final Yamil Confirmed Date Final Yamil Date Ultra Sound Latest Days Gestation 0 0 Menstrual History Last Menstrual Date Menses Monthly On Bcp Conception Prior Menses Frequency Hcg Plus Date Menarche Onset Age Delivery Information Delivery Date Delivery Type Labor Anesthesia Weeks Gestation Incision Type Labor Labor Length Hrs Delivered By Post Complications Tubal Sterilization Discharge Date Comments 7 40 baby gir l born in [place], cb-rma Discharge Information Feeding Method Contraceptive Method Maternal HG B and HCT Levels Ob Episode Information Episode Created Date Number of Fetuses Patient Bloodtype Patient rh Status Prepregnancy Weight lbs Domestic Partner Domestic Partner Phone Father Name Spa Assistant Manager Status 03/22/20 18 1 CLOSED Fetus Data First Name Last Name Admitted to NICU Weight (g) Sex Living Outcome Pediatric Complications Fetus ID Race Codes Race Delivery Type 3628.73 6 M Full Term [id number] Vaginal Yamil Calculation Initial Yamil Date Initial Exam Date Initial Exam Provider Initial Ultrasound Date Last Menstrual Period Date Ultra Sound Weeks Gestation 0 Eighteen To Twenty Week Yamil Update Ultra Sound Date Fundal Height At Umbil Quickening Date Ultra Sound Latest Weeks Gestation Final Yamil Confirmed By Final Yamil Confirmed Date Final Yamil Date Ultra Sound Latest Days Gestation 0 0 Menstrual History Last Menstrual Date Menses Monthly On Bcp Conception Prior Menses Frequency Hcg Plus Date Menarche Onset Age Delivery Information Delivery Date Delivery Type Labor Anesthesia Weeks Gestation Incision Type Labor Labor Length Hrs Delivered By Post Complications Tubal Sterilization Discharge Date Comments 4 baby boy born [place], cb-rm Discharge Information Feeding Method Contraceptive Method Maternal HG B and HCT Levels Ob Episode Information Episode Created Date Number of Fetuses Patient Bloodtype Patient rh Status Prepregnancy Weight lbs Domestic Partner Domestic Partner Phone Father Name Spa Assistant Manager Status 03/22/20 18 1 CLOSED Fetus Data First Name Last Name Admitted to NICU Weight (g) Sex Living Outcome Pediatric Complications Fetus ID Race Codes Race Delivery Type 3826.95 5704 M Full Term [id number] Vaginal Yamil Calculation Initial Yamil Date Initial Exam Date Initial Exam Provider Initial Ultrasound Date Last Menstrual Period Date Ultra Sound Weeks Gestation 0 Eighteen To Twenty Week Yamil Update Ultra Sound Date Fundal Height At Umbil Quickening Date Ultra Sound Latest Weeks Gestation Final Yamil Confirmed By Final Yamil Confirmed Date Final Yamil Date Ultra Sound Latest Days Gestation 0 0 Menstrual History Last Menstrual Date Menses Monthly On Bcp Conception Prior Menses Frequency Hcg Plus Date Menarche Onset Age Delivery Information Delivery Date Delivery Type Labor Anesthesia Weeks Gestation Incision Type Labor Labor Length Hrs Delivered By Post Complications Tubal Sterilization Discharge Date Comments 1 40 [facility] cb[facility] Discharge Information Feeding Method Contraceptive Method Maternal HG B and HCT Levels
== END 2024-11-16 11:32 | disposition home or self-care (01) ==
PROVIDERS: PCP Physician Assistant; Visit Provider Physician Assistant
DX: E04.9 Nontoxic goiter, unspecified (principal); Z12.31 Encounter for screening mammogram for malignant neoplasm of breast
CPT/HCPCS: 76536